=== PATIENT | male | born 1960 | race Caucasian/White ===

== ENCOUNTER 2017-04-05 13:17 | Inpatient (IN) | payer BC ==
[~2017-04-05 13:17] MED LIST: EPHEDrine SULFATE 50 MG/5 ML SYG; LIDOCAINE 100 MG SYRINGE
[2017-04-05] MEDS ORDERED: SUCCINYLCHOLINE CHLORIDE 100 MG/5 ML SYG IV (16:45)
[2017-04-05] MEDS ORDERED: PROPOFOL 20 ML (16:45)
[2017-04-05] MEDS ORDERED: MIDAZOLAM 1 MG/ML 2 ML INJ (16:45)
[2017-04-05] MEDS ORDERED: ROCURONIUM 50 MG INJ ×3 (16:45→17:25)
[2017-04-05] MEDS ORDERED: HEPARIN 1000 UNITS/ML 10 ML INJ (16:55)
[2017-04-05] MEDS ORDERED: SCOPOLAMINE 1.5 MG PATCH (17:00)
[2017-04-05] MEDS ORDERED: THROMBIN 5000 UNIT VIAL ×2 (17:16→19:49)
[2017-04-05] MEDS ORDERED: CEFAZOLIN 1 GM INJ ×2 (17:16→17:36)
[2017-04-05] MEDS ORDERED: GELATIN SIZE 100 SPONGE (17:16)
[2017-04-05] MEDS ORDERED: SODIUM CL BACTERIOSTATIC 30 ML INJ (17:17)
[2017-04-05] MEDS ORDERED: NALOXONE (0.4 MG/ML) INJ IV (17:30)
[2017-04-05] MEDS: DOCUSATE SODIUM 100 MG CAP PO ×2 (17:30→21:00)
[2017-04-05] MEDS ORDERED: PHENYLephrine (100 MCG/ML) 5ML SYG ×4 (17:39→19:55)
[2017-04-05] MEDS ORDERED: ONDANSETRON 4 MG INJ (17:46)
[2017-04-05] MEDS ORDERED: METOCLOPRAMIDE 10 MG INJ (17:46)
[2017-04-05] MEDS ORDERED: FAMOTIDINE 20 MG INJ (17:46)
[2017-04-05] MEDS ORDERED: DEXAMETHASONE 4 MG/ML 1 ML INJ (17:46)
[2017-04-05] MEDS ORDERED: LABETALOL HCL 20MG INJ (18:11)
[2017-04-05] MEDS: HEPARIN 10,000 UNITS/ML 1 ML INJ SC (18:27)
[2017-04-05] MEDS: CEFAZOLIN 1 GM INJ IVPB (18:28)
[2017-04-05] MEDS: THROMBIN 5000 UNIT VIAL TOP (18:39)
[2017-04-05] MEDS: HEMOSTATIC MATRIX SYG INJ (18:39)
[2017-04-05] MEDS: GELATIN SIZE 100 SPONGE (19:42)
[2017-04-05] MEDS ORDERED: SUGAMMADEX SODIUM 200 MG/2 ML VIAL IV (20:36)
[2017-04-05] MEDS ORDERED: FENTAnyl 50 MCG/ML VIAL (20:57)
[2017-04-05] MEDS ORDERED: HYDROmorphONE (0.2 MG/ML) 10ML SYG IV ×2 (21:19→21:30)
[2017-04-05] MEDS: HYDROmorphONE (0.2 MG/ML) 10ML SYG IV (21:30)
[2017-04-05] MEDS: HYDROmorphONE 0.5 MG/0.5 ML SYG IV (23:10)
[2017-04-06] MEDS: INSULIN ASPART [NOVOLOG] 3 ML PEN SC ×7 (01:48→20:09)
[2017-04-06] MEDS: ACCU-CHEK XX ×4 (02:00→13:30)
[2017-04-06] MEDS: HYDROmorphONE 0.5 MG/0.5 ML SYG IV ×4 (03:46→18:07)
[2017-04-06] MEDS: CEFAZOLIN 2 GM/50 ML (PMX) 50 ML IVPB ×4 (06:00→21:01)
[2017-04-06 06:07] LABS: HEMATOCRIT 35.8 % (42.0-52.0); HEMOGLOBIN 12.9 g/dl (14.0-18.0)
[2017-04-06 06:56] LABS: ANION GAP 17 (8-16); BLOOD UREA NITROGEN 18 mg/dl (7-20); CALCIUM 7.8 mg/dl (8.4-10.2); CARBON DIOXIDE 24 mmol/L (21-31); CHLORIDE 106 mmol/L (97-110); CREATININE 0.81 mg/dl (0.61-1.24); GLUCOSE 263 mg/dl (70-220); POTASSIUM 4.8 mmol/L (3.5-5.1); SODIUM 142 mmol/L (135-144)
[2017-04-06] MEDS ORDERED: INSULIN ASPART [NOVOLOG] 3 ML PEN SC (07:05)
[2017-04-06 07:49] LABS: HEMOGLOBIN A1C 9.5 % (0-5.9)
[2017-04-06] MEDS: HYDROCODONE/APAP (5/325) TAB PO ×2 (08:37→16:02)
[2017-04-06] MEDS: DOCUSATE SODIUM 100 MG CAP PO ×2 (08:37→20:59)
[2017-04-06] MEDS: SOD CHLORIDE 0.9% 250 ML IV (11:28)
[2017-04-06 11:52] LABS: MAGNESIUM 1.7 mg/dl (1.7-2.5)
[2017-04-06] MEDS ORDERED: DEXTROSE 50% 50 ML SYRINGE IV ×2 (12:00)
[2017-04-06] MEDS ORDERED: GLUCOSE GEL 15 GRAM TUBE BUCCAL (12:00)
[2017-04-06] MEDS ORDERED: GLUCOSE GEL 15 GRAM TUBE PO ×2 (12:00)
[2017-04-06] MEDS ORDERED: GLUCAGON 1 MG INJ IM (12:00)
[2017-04-06] MEDS: METOPROLOL 50 MG TAB PO ×2 (12:03→21:00)
[2017-04-06] MEDS ORDERED: INFLUENZA VIRUS VACCINE 0.5 ML (DISPENSING) IM* (19:00)
[2017-04-06] MEDS: INSULIN GLARGINE [LANtus] 3 ML PEN SC (20:10)
[2017-04-07] MEDS: HYDROCODONE/APAP (5/325) TAB PO ×3 (00:06→20:05)
[2017-04-07] MEDS: HYDROmorphONE 0.5 MG/0.5 ML SYG IV ×3 (01:27→14:39)
[2017-04-07] MEDS: ACCU-CHEK XX ×4 (01:36→20:03)
[2017-04-07] MEDS: CEFAZOLIN 2 GM/50 ML (PMX) 50 ML IVPB ×3 (05:20→21:41)
[2017-04-07 05:42] LABS: ADD MAN DIFF? NO
[2017-04-07 05:49] LABS: WHITE BLOOD COUNT 8.7 10^3/ul (4.8-10.8)
[2017-04-07 05:49] LABS: BASOPHILS % 0.3 % (0.0-2.0); EOSINOPHILS % 0.3 % (0.0-7.0); HEMATOCRIT 34.8 % (42.0-52.0); HEMOGLOBIN 12.2 g/dl (14.0-18.0); LYMPHOCYTES # 1.2 10^3/ul (0.8-2.9); LYMPHOCYTES % 14.1 % (15.0-51.0); MEAN CORPUSCULAR HEMOGLOBIN 33.2 pg (29.0-33.0); MEAN CORPUSCULAR HGB CONC 35.1 g/dl (32.0-37.0); MEAN CORPUSCULAR VOLUME 94.6 fl (82.0-101.0); MEAN PLATELET VOLUME 10.2 fl (7.4-10.4); MONOCYTE # 0.8 10^3/ul (0.3-0.9); NEUTROPHIL # 6.6 10^3/ul (1.6-7.5); NEUTROPHILS % 75.8 % (39.0-77.0); PLATELET COUNT 145 10^3/UL (140-415); RED BLOOD COUNT 3.68 10^6/ul (4.70-6.10); RED CELL DISTRIBUTION WIDTH 11.9 % (11.5-14.5)
[2017-04-07 06:38] LABS: CHOLESTEROL 128 mg/dl (100-200)
[2017-04-07 06:38] LABS: CHOL/HDL RATIO 4.7 RATIO; HDL CHOLESTEROL 27 mg/dl (28-71); LDL CHOLESTEROL,CALCULATED 69 mg/dl; TRIGLYCERIDES 159 mg/dl (0-149)
[2017-04-07 06:42] LABS: ANION GAP 10 (8-16); BLOOD UREA NITROGEN 18 mg/dl (7-20); CALCIUM 8.4 mg/dl (8.4-10.2); CARBON DIOXIDE 27 mmol/L (21-31); CHLORIDE 103 mmol/L (97-110); CREATININE 0.75 mg/dl (0.61-1.24); GLUCOSE 203 mg/dl (70-220); POTASSIUM 3.9 mmol/L (3.5-5.1); SODIUM 136 mmol/L (135-144)
[2017-04-07] MEDS: INSULIN ASPART [NOVOLOG] 3 ML PEN SC ×7 (08:13→21:12)
[2017-04-07] MEDS: DOCUSATE SODIUM 100 MG CAP PO ×2 (09:25→20:05)
[2017-04-07] MEDS: METOPROLOL 50 MG TAB PO ×2 (09:26→20:05)
[2017-04-07] MEDS ORDERED: INSULIN ASPART [NOVOLOG] 3 ML PEN SC (17:35)
[2017-04-07] MEDS: INSULIN GLARGINE [LANtus] 3 ML PEN SC (20:05)
[2017-04-08] MEDS: HYDROmorphONE 0.5 MG/0.5 ML SYG IV ×4 (00:07→19:59)
[2017-04-08] MEDS: ACCU-CHEK XX ×4 (02:00→19:35)
[2017-04-08] MEDS: CEFAZOLIN 2 GM/50 ML (PMX) 50 ML IVPB ×3 (06:06→22:09)
[2017-04-08 06:19] LABS: ADD MAN DIFF? NO
[2017-04-08 06:47] LABS: WHITE BLOOD COUNT 7.9 10^3/ul (4.8-10.8)
[2017-04-08 06:47] LABS: BASOPHILS % 0.3 % (0.0-2.0); EOSINOPHILS # 0.1 10^3/ul (0.0-0.5); EOSINOPHILS % 1.1 % (0.0-7.0); HEMOGLOBIN 12.1 g/dl (14.0-18.0); LYMPHOCYTES # 1.1 10^3/ul (0.8-2.9); LYMPHOCYTES % 14.5 % (15.0-51.0); MEAN CORPUSCULAR HEMOGLOBIN 33.8 pg (29.0-33.0); MEAN CORPUSCULAR HGB CONC 36.7 g/dl (32.0-37.0); MEAN CORPUSCULAR VOLUME 92.2 fl (82.0-101.0); MEAN PLATELET VOLUME 10.4 fl (7.4-10.4); MONOCYTE # 0.7 10^3/ul (0.3-0.9); MONOCYTES % 8.3 % (0.0-11.0); NEUTROPHIL # 5.9 10^3/ul (1.6-7.5); NEUTROPHILS % 75.4 % (39.0-77.0); PLATELET COUNT 155 10^3/UL (140-415); RED BLOOD COUNT 3.58 10^6/ul (4.70-6.10); RED CELL DISTRIBUTION WIDTH 11.9 % (11.5-14.5)
[2017-04-08 07:07] LABS: ANION GAP 15 (8-16); BLOOD UREA NITROGEN 15 mg/dl (7-20); CALCIUM 8.1 mg/dl (8.4-10.2); CARBON DIOXIDE 26 mmol/L (21-31); CHLORIDE 102 mmol/L (97-110); CREATININE 0.69 mg/dl (0.61-1.24); GLUCOSE 172 mg/dl (70-220); SODIUM 139 mmol/L (135-144)
[2017-04-08] MEDS: INSULIN ASPART [NOVOLOG] 3 ML PEN SC ×7 (08:35→20:56)
[2017-04-08] MEDS: METOPROLOL 50 MG TAB PO ×2 (09:09→19:41)
[2017-04-08] MEDS: DOCUSATE SODIUM 100 MG CAP PO ×2 (09:09→20:56)
[2017-04-08] MEDS: HYDROCODONE/APAP (5/325) TAB PO ×2 (09:09→20:36)
[2017-04-08] MEDS ORDERED: MIDAZOLAM 1 MG/ML 2 ML INJ (15:34)
[2017-04-08] MEDS ORDERED: METOCLOPRAMIDE 10 MG INJ (15:34)
[2017-04-08] MEDS ORDERED: PROPOFOL 20 ML (15:34)
[2017-04-08] MEDS ORDERED: HYDROmorphONE 2 MG/ML SYG (15:53)
[2017-04-08] MEDS ORDERED: CEFAZOLIN 1 GM INJ (16:13)
[2017-04-08] MEDS ORDERED: SCOPOLAMINE 1.5 MG PATCH (16:14)
[2017-04-08] MEDS ORDERED: DEXAMETHASONE 4 MG/ML 1 ML INJ (16:16)
[2017-04-08] MEDS: GELATIN SIZE 100 SPONGE (16:57)
[2017-04-08] MEDS: POLYMYXIN/BACITRACIN 1L IRRIG (16:57)
[2017-04-08] MEDS: THROMBIN 5000 UNIT VIAL (16:57)
[2017-04-08] MEDS ORDERED: ROCURONIUM 50 MG INJ (18:36)
[2017-04-08] MEDS: ROPIVACAINE 0.5 % 30 ML VIAL ×2 (18:59)
[2017-04-08] MEDS ORDERED: NEOSTIGMINE 3 MG/3 ML SYRINGE (19:03)
[2017-04-08] MEDS ORDERED: GLYCOPYRROLATE 0.4 MG INJ (19:03)
[2017-04-08] MEDS ORDERED: hydrALAzine 20 MG INJ (19:54)
[2017-04-08] MEDS: hydrALAzine 20 MG INJ IV (20:30)
[2017-04-08] MEDS: INSULIN GLARGINE [LANtus] 3 ML PEN SC (20:55)
[2017-04-09] MEDS: ACCU-CHEK XX ×4 (02:14→20:23)
[2017-04-09] MEDS: HYDROmorphONE 0.5 MG/0.5 ML SYG IV ×3 (05:20→09:28)
[2017-04-09] MEDS: CEFAZOLIN 2 GM/50 ML (PMX) 50 ML IVPB ×3 (05:47→22:13)
[2017-04-09 05:51] LABS: ADD MAN DIFF? NO
[2017-04-09 05:58] LABS: BASOPHILS % 0.1 % (0.0-2.0); HEMATOCRIT 29.7 % (42.0-52.0); HEMOGLOBIN 10.8 g/dl (14.0-18.0); LYMPHOCYTES # 0.8 10^3/ul (0.8-2.9); LYMPHOCYTES % 8.8 % (15.0-51.0); MEAN CORPUSCULAR HEMOGLOBIN 33.4 pg (29.0-33.0); MEAN CORPUSCULAR HGB CONC 36.4 g/dl (32.0-37.0); MONOCYTE # 0.6 10^3/ul (0.3-0.9); MONOCYTES % 6.4 % (0.0-11.0); NEUTROPHIL # 7.6 10^3/ul (1.6-7.5); NEUTROPHILS % 84.1 % (39.0-77.0); PLATELET COUNT 214 10^3/UL (140-415); RED BLOOD COUNT 3.23 10^6/ul (4.70-6.10); RED CELL DISTRIBUTION WIDTH 11.7 % (11.5-14.5)
[2017-04-09 06:37] LABS: ANION GAP 15 (8-16); BLOOD UREA NITROGEN 18 mg/dl (7-20); CALCIUM 8.3 mg/dl (8.4-10.2); CARBON DIOXIDE 21 mmol/L (21-31); CHLORIDE 106 mmol/L (97-110); CREATININE 0.58 mg/dl (0.61-1.24); GLUCOSE 217 mg/dl (70-220); SODIUM 138 mmol/L (135-144)
[2017-04-09] MEDS: INSULIN ASPART [NOVOLOG] 3 ML PEN SC ×8 (08:02→20:33)
[2017-04-09] MEDS: DOCUSATE SODIUM 100 MG CAP PO ×2 (08:24→20:24)
[2017-04-09] MEDS: METOPROLOL 50 MG TAB PO ×2 (08:25→20:24)
[2017-04-09] MEDS: HYDROCODONE/APAP (5/325) TAB PO ×2 (09:28→20:39)
[2017-04-09] MEDS: HYDROmorphONE 2 MG/ML SYG IV ×4 (11:21→22:13)
[2017-04-09] MEDS: INSULIN GLARGINE [LANtus] 3 ML PEN SC (20:33)
[2017-04-10] MEDS: ACCU-CHEK XX ×4 (01:54→19:55)
[2017-04-10] MEDS: HYDROmorphONE 2 MG/ML SYG IV ×5 (03:10→20:40)
[2017-04-10 05:35] LABS: ADD MAN DIFF? NO
[2017-04-10 05:50] LABS: BASOPHILS % 0.3 % (0.0-2.0); EOSINOPHILS # 0.2 10^3/ul (0.0-0.5); EOSINOPHILS % 2.5 % (0.0-7.0); HEMATOCRIT 26.9 % (42.0-52.0); HEMOGLOBIN 9.6 g/dl (14.0-18.0); LYMPHOCYTES # 1.4 10^3/ul (0.8-2.9); LYMPHOCYTES % 21.5 % (15.0-51.0); MEAN CORPUSCULAR HEMOGLOBIN 33.3 pg (29.0-33.0); MEAN CORPUSCULAR HGB CONC 35.7 g/dl (32.0-37.0); MEAN CORPUSCULAR VOLUME 93.4 fl (82.0-101.0); MEAN PLATELET VOLUME 9.6 fl (7.4-10.4); MONOCYTE # 0.6 10^3/ul (0.3-0.9); MONOCYTES % 9.3 % (0.0-11.0); NEUTROPHIL # 4.4 10^3/ul (1.6-7.5); NEUTROPHILS % 65.5 % (39.0-77.0); PLATELET COUNT 205 10^3/UL (140-415); RED BLOOD COUNT 2.88 10^6/ul (4.70-6.10)
[2017-04-10 05:50] LABS: WHITE BLOOD COUNT 6.7 10^3/ul (4.8-10.8)
[2017-04-10] MEDS: HYDROCODONE/APAP (5/325) TAB PO (05:55)
[2017-04-10 06:47] LABS: ANION GAP 12 (8-16); BLOOD UREA NITROGEN 22 mg/dl (7-20); CALCIUM 8.2 mg/dl (8.4-10.2); CARBON DIOXIDE 28 mmol/L (21-31); CHLORIDE 101 mmol/L (97-110); CREATININE 0.75 mg/dl (0.61-1.24); GLUCOSE 220 mg/dl (70-220); POTASSIUM 4.3 mmol/L (3.5-5.1); SODIUM 137 mmol/L (135-144)
[2017-04-10] MEDS: DOCUSATE SODIUM 100 MG CAP PO ×2 (08:33→20:17)
[2017-04-10] MEDS: METOPROLOL 50 MG TAB PO ×2 (08:33→20:18)
[2017-04-10] MEDS: INSULIN ASPART [NOVOLOG] 3 ML PEN SC ×7 (09:07→20:23)
[2017-04-10] MEDS: BISACODYL (EC) 5 MG TAB PO (16:59)
[2017-04-10] MEDS: INSULIN GLARGINE [LANtus] 3 ML PEN SC (20:22)
[2017-04-11] MEDS: ACCU-CHEK XX ×4 (02:00→20:05)
[2017-04-11] MEDS: HYDROmorphONE 2 MG/ML SYG IV ×3 (02:22→12:37)
[2017-04-11] MEDS: HYDROCODONE/APAP (5/325) TAB PO ×4 (04:00→20:38)
[2017-04-11] MEDS: DOCUSATE SODIUM 100 MG CAP PO ×2 (09:31→20:25)
[2017-04-11] MEDS: METOPROLOL 50 MG TAB PO ×2 (09:31→20:25)
[2017-04-11] MEDS: INSULIN ASPART [NOVOLOG] 3 ML PEN SC ×7 (09:41→20:29)
[2017-04-11] MEDS ORDERED: ARTIFICIAL TEARS 15 ML OPH BOTH EYES (13:00)
[2017-04-11] MEDS: ONDANSETRON 4 MG INJ IV (15:37)
[2017-04-11] MEDS: BISACODYL (EC) 5 MG TAB PO (20:25)
[2017-04-11] MEDS: INSULIN GLARGINE [LANtus] 3 ML PEN SC (20:28)
[2017-04-12] MEDS: ACCU-CHEK XX ×2 (01:40→10:48)
[2017-04-12] MEDS: HYDROCODONE/APAP (5/325) TAB PO ×4 (04:44→20:04)
[2017-04-12] MEDS: BISACODYL (EC) 5 MG TAB PO (04:44)
[2017-04-12] MEDS: DOCUSATE SODIUM 100 MG CAP PO ×2 (08:51→20:04)
[2017-04-12] MEDS: INSULIN ASPART [NOVOLOG] 3 ML PEN SC ×7 (08:52→20:12)
[2017-04-12] MEDS: METOPROLOL 50 MG TAB PO ×2 (08:54→20:05)
[2017-04-12] MEDS: LACTULOSE 30ML CUP PO (11:06)
[2017-04-12 14:26] LABS: ADD MAN DIFF? NO
[2017-04-12 14:30] LABS: WHITE BLOOD COUNT 6.9 10^3/ul (4.8-10.8)
[2017-04-12 14:30] LABS: BASOPHILS % 0.4 % (0.0-2.0); EOSINOPHILS # 0.1 10^3/ul (0.0-0.5); HEMATOCRIT 28.2 % (42.0-52.0); HEMOGLOBIN 10.2 g/dl (14.0-18.0); LYMPHOCYTES # 0.7 10^3/ul (0.8-2.9); LYMPHOCYTES % 10.2 % (15.0-51.0); MEAN CORPUSCULAR HEMOGLOBIN 33.6 pg (29.0-33.0); MEAN CORPUSCULAR HGB CONC 36.2 g/dl (32.0-37.0); MEAN CORPUSCULAR VOLUME 92.8 fl (82.0-101.0); MEAN PLATELET VOLUME 9.1 fl (7.4-10.4); MONOCYTE # 0.4 10^3/ul (0.3-0.9); MONOCYTES % 6.4 % (0.0-11.0); NEUTROPHIL # 5.6 10^3/ul (1.6-7.5); NEUTROPHILS % 80.8 % (39.0-77.0); PLATELET COUNT 270 10^3/UL (140-415); RED BLOOD COUNT 3.04 10^6/ul (4.70-6.10); RED CELL DISTRIBUTION WIDTH 12.8 % (11.5-14.5)
[2017-04-12 15:03] LABS: ANION GAP 11 (8-16); BLOOD UREA NITROGEN 15 mg/dl (7-20); CARBON DIOXIDE 29 mmol/L (21-31); CHLORIDE 102 mmol/L (97-110); CREATININE 0.76 mg/dl (0.61-1.24); GLUCOSE 230 mg/dl (70-220); POTASSIUM 3.5 mmol/L (3.5-5.1); SODIUM 138 mmol/L (135-144)
[2017-04-12] MEDS ORDERED: MINERAL OIL 133 ML ENEMA PR (19:30)
[2017-04-12] MEDS: INSULIN GLARGINE [LANtus] 3 ML PEN SC (20:11)
[2017-04-13] MEDS: ACCU-CHEK XX (01:57)
[2017-04-13 05:13] LABS: ADD MAN DIFF? NO
[2017-04-13 05:21] LABS: WHITE BLOOD COUNT 6.6 10^3/ul (4.8-10.8)
[2017-04-13 05:21] LABS: BASOPHILS % 0.5 % (0.0-2.0); EOSINOPHILS # 0.2 10^3/ul (0.0-0.5); EOSINOPHILS % 2.7 % (0.0-7.0); HEMATOCRIT 28.5 % (42.0-52.0); HEMOGLOBIN 10.1 g/dl (14.0-18.0); LYMPHOCYTES # 1.2 10^3/ul (0.8-2.9); LYMPHOCYTES % 18.4 % (15.0-51.0); MEAN CORPUSCULAR HEMOGLOBIN 32.8 pg (29.0-33.0); MEAN CORPUSCULAR HGB CONC 35.4 g/dl (32.0-37.0); MEAN CORPUSCULAR VOLUME 92.5 fl (82.0-101.0); MONOCYTE # 0.5 10^3/ul (0.3-0.9); MONOCYTES % 8.2 % (0.0-11.0); NEUTROPHIL # 4.5 10^3/ul (1.6-7.5); NEUTROPHILS % 69.3 % (39.0-77.0); PLATELET COUNT 261 10^3/UL (140-415); RED BLOOD COUNT 3.08 10^6/ul (4.70-6.10); RED CELL DISTRIBUTION WIDTH 12.5 % (11.5-14.5)
[2017-04-13] MEDS: HYDROCODONE/APAP (5/325) TAB PO ×4 (05:41→21:59)
[2017-04-13 06:01] LABS: ANION GAP 11 (8-16); BLOOD UREA NITROGEN 11 mg/dl (7-20); CALCIUM 8.5 mg/dl (8.4-10.2); CARBON DIOXIDE 27 mmol/L (21-31); CHLORIDE 106 mmol/L (97-110); CREATININE 0.67 mg/dl (0.61-1.24); GLUCOSE 182 mg/dl (70-220); POTASSIUM 3.4 mmol/L (3.5-5.1); SODIUM 141 mmol/L (135-144)
[2017-04-13] MEDS: DOCUSATE SODIUM 100 MG CAP PO ×2 (08:42→20:30)
[2017-04-13] MEDS: METOPROLOL 50 MG TAB PO ×2 (08:42→20:30)
[2017-04-13] MEDS: INSULIN ASPART [NOVOLOG] 3 ML PEN SC ×7 (09:04→20:30)
[2017-04-13] MEDS: HYDROmorphONE 2 MG TAB PO (11:48)
[2017-04-13] MEDS: POTASSIUM CHLORIDE (SR) 20 MEQ TAB PO (12:54)
[2017-04-13] MEDS: INSULIN GLARGINE [LANtus] 3 ML PEN SC (20:44)
== END 2017-04-13 22:20 | DRG 455 ==
LOC: REC 13:17 → MS1 04-09 14:29 → ICU 22:41
PROVIDERS: Neurological Surgery
PROC: 0SG10A0 Fusion of 2 or more Lumbar Vertebral Joints with Interbody Fusion Device, Anterior Approach, Anterior Column, Open Approach (ICD-10-PCS; principal; 2017-04-05 15:00)
PROC: 0SG30A0 Fusion of Lumbosacral Joint with Interbody Fusion Device, Anterior Approach, Anterior Column, Open Approach (ICD-10-PCS; 2017-04-05 15:00)
PROC: 0SB20ZZ Excision of Lumbar Vertebral Disc, Open Approach (ICD-10-PCS; 2017-04-05 15:00)
PROC: 0SB40ZZ Excision of Lumbosacral Disc, Open Approach (ICD-10-PCS; 2017-04-05 15:00)
PROC: 0SG10Z1 (ICD-10-PCS; 2017-04-05 16:35)
PROC: 0SG30Z1 (ICD-10-PCS; 2017-04-05 16:35)
DX: M51.16 Intervertebral disc disorders with radiculopathy, lumbar region (principal); I10 Essential (primary) hypertension; M51.17 Intervertebral disc disorders with radiculopathy, lumbosacral region; Z87.891 Personal history of nicotine dependence; K59.00 Constipation, unspecified; E11.9 Type 2 diabetes mellitus without complications
CPT/HCPCS: 72100; 72114; 72131; 80048; 80061; 82962; 83036; 83735; 85014; 85018; 85025; 86850; 86900; 86901; 86920; 87081; 87086; 88304; 88311; 90686; 97110; 97116; 97163; 97164; 97167; 97530; 97535

== ENCOUNTER 2017-04-13 22:33 | Inpatient (IN) | payer BC ==
[2017-04-13] MEDS ORDERED: GLUCAGON 1 MG INJ IM (23:45)
[2017-04-13] MEDS ORDERED: GLUCOSE GEL 15 GRAM TUBE PO ×2 (23:45)
[2017-04-13] MEDS ORDERED: GLUCOSE GEL 15 GRAM TUBE BUCCAL (23:45)
[2017-04-13] MEDS ORDERED: MINERAL OIL 133 ML ENEMA PR (23:45)
[2017-04-13] MEDS ORDERED: hydrALAzine 20 MG INJ IV (23:45)
[2017-04-13] MEDS ORDERED: NALOXONE (0.4 MG/ML) INJ IV (23:45)
[2017-04-13] MEDS ORDERED: DEXTROSE 50% 50 ML SYRINGE IV ×2 (23:45)
[2017-04-13] MEDS ORDERED: ONDANSETRON 4 MG INJ IV (23:45)
[2017-04-13] MEDS ORDERED: HYDROCODONE/APAP (5/325) TAB PO (23:45)
[2017-04-14] MEDS ORDERED: PENDING SANTYL ORDER FOR WOUND CARE XX
[2017-04-14] MEDS ORDERED: ARTIFICIAL TEARS 15 ML OPH BOTH EYES (00:30)
[2017-04-14] MEDS ORDERED: BISACODYL (EC) 5 MG TAB PO (00:30)
[2017-04-14] MEDS: ACCUCHECK AT 2AM (Patients on SS coverage) XX (02:00)
[2017-04-14 04:47] LABS: ADD UMIC NO; UR AMORPHOUS CRYSTAL FEW /HPF (NONE SEEN); UR ASCORBIC ACID NEGATIVE (NEGATIVE); UR BILIRUBIN (Dip) NEGATIVE (NEGATIVE); UR BLOOD (Dip) NEGATIVE (NEGATIVE); UR CLARITY SLIGHTLY CLOUDY (CLEAR); UR COLOR YELLOW (YELLOW); UR GLUCOSE (Dip) NEGATIVE (NEGATIVE); UR KETONES (Dip) NEGATIVE (NEGATIVE); UR LEUKOCYTE ESTERASE (Dip) NEGATIVE Leu/ul (NEGATIVE); UR NITRITE (Dip) NEGATIVE (NEGATIVE); UR RBC 1 /HPF (0-5); UR SPECIFIC GRAVITY (Dip) 1.006 (1.003-1.030); UR TOTAL PROTEIN (Dip) NEGATIVE (NEGATIVE); UR UROBILINOGEN (Dip) NEGATIVE (NEGATIVE); UR WBC 1 /HPF (0-5)
[2017-04-14] MEDS: Insulin NOVOLOG SS MILD Algorithm (SS with meals and bedtime) SC ×4 (07:05→20:42)
[2017-04-14 07:37] LABS: ADD MAN DIFF? NO
[2017-04-14 07:42] LABS: WHITE BLOOD COUNT 5.3 10^3/ul (4.8-10.8)
[2017-04-14 07:42] LABS: BASOPHILS % 0.6 % (0.0-2.0); EOSINOPHILS # 0.2 10^3/ul (0.0-0.5); EOSINOPHILS % 4.4 % (0.0-7.0); HEMATOCRIT 29.5 % (42.0-52.0); HEMOGLOBIN 10.6 g/dl (14.0-18.0); LYMPHOCYTES # 1.2 10^3/ul (0.8-2.9); LYMPHOCYTES % 23.3 % (15.0-51.0); MEAN CORPUSCULAR HEMOGLOBIN 33.5 pg (29.0-33.0); MEAN CORPUSCULAR HGB CONC 35.9 g/dl (32.0-37.0); MEAN CORPUSCULAR VOLUME 93.4 fl (82.0-101.0); MEAN PLATELET VOLUME 8.9 fl (7.4-10.4); MONOCYTE # 0.5 10^3/ul (0.3-0.9); MONOCYTES % 8.5 % (0.0-11.0); NEUTROPHIL # 3.3 10^3/ul (1.6-7.5); NEUTROPHILS % 62.3 % (39.0-77.0); PLATELET COUNT 284 10^3/UL (140-415); RED BLOOD COUNT 3.16 10^6/ul (4.70-6.10); RED CELL DISTRIBUTION WIDTH 12.9 % (11.5-14.5)
[2017-04-14 08:01] LABS: ALANINE AMINOTRANSFERASE 56 IU/L (13-69); ALBUMIN 3.3 g/dl (3.3-4.9); ALKALINE PHOSPHATASE 57 IU/L (42-121); ANION GAP 12 (8-16); ASPARTATE AMINO TRANSFERASE 43 IU/L (15-46); BILIRUBIN,INDIRECT 0.6 mg/dl (0-1.1); BILIRUBIN,TOTAL 0.6 mg/dl (0.2-1.3); BLOOD UREA NITROGEN 10 mg/dl (7-20); CALCIUM 8.9 mg/dl (8.4-10.2); CARBON DIOXIDE 28 mmol/L (21-31); CHLORIDE 105 mmol/L (97-110); CREATININE 0.73 mg/dl (0.61-1.24); GLUCOSE 136 mg/dl (70-220); POTASSIUM 3.5 mmol/L (3.5-5.1); SODIUM 141 mmol/L (135-144); TOTAL PROTEIN 6.3 g/dl (6.1-8.1)
[2017-04-14] MEDS: HYDROCODONE/APAP (5/325) TAB PO ×2 (08:13→20:54)
[2017-04-14] MEDS: DOCUSATE SODIUM 100 MG CAP PO ×2 (08:14→20:42)
[2017-04-14] MEDS: METOPROLOL 50 MG TAB PO ×2 (08:14→20:42)
[2017-04-14] MEDS: INSULIN ASPART [NOVOLOG] 3 ML PEN SC ×3 (08:16→17:38)
[2017-04-14] MEDS: HYDROmorphONE 2 MG TAB PO (09:59)
[2017-04-14] MEDS: LACTULOSE 30ML CUP PO (17:38)
[2017-04-14] MEDS: INSULIN GLARGINE [LANtus] 3 ML PEN SC (20:59)
[2017-04-15] MEDS: ACCUCHECK AT 2AM (Patients on SS coverage) XX (02:00)
[2017-04-15] MEDS: HYDROCODONE/APAP (5/325) TAB PO ×5 (04:05→21:43)
[2017-04-15] MEDS: Insulin NOVOLOG SS MILD Algorithm (SS with meals and bedtime) SC ×4 (07:05→21:00)
[2017-04-15] MEDS: INSULIN ASPART [NOVOLOG] 3 ML PEN SC ×3 (08:07→18:04)
[2017-04-15] MEDS: DOCUSATE SODIUM 100 MG CAP PO ×2 (08:50→21:42)
[2017-04-15] MEDS: METOPROLOL 50 MG TAB PO ×2 (09:00→21:42)
[2017-04-15] MEDS: INSULIN GLARGINE [LANtus] 3 ML PEN SC (21:49)
[2017-04-16] MEDS: ACCUCHECK AT 2AM (Patients on SS coverage) XX (01:51)
[2017-04-16] MEDS: HYDROCODONE/APAP (5/325) TAB PO ×3 (04:56→10:11)
[2017-04-16] MEDS: Insulin NOVOLOG SS MILD Algorithm (SS with meals and bedtime) SC ×4 (08:06→21:00)
[2017-04-16] MEDS: INSULIN ASPART [NOVOLOG] 3 ML PEN SC ×3 (08:08→17:44)
[2017-04-16] MEDS: METOPROLOL 50 MG TAB PO ×2 (09:32→21:34)
[2017-04-16] MEDS: DOCUSATE SODIUM 100 MG CAP PO ×2 (09:34→21:33)
[2017-04-16] MEDS: INFLUENZA VIRUS VACCINE 0.5 ML (DISPENSING) IM* (10:07)
[2017-04-16] MEDS: HYDROCODONE/APAP (10/325) TAB PO ×2 (14:31→19:49)
[2017-04-16] MEDS: INSULIN GLARGINE [LANtus] 3 ML PEN SC (21:39)
[2017-04-17] MEDS: ACCUCHECK AT 2AM (Patients on SS coverage) XX (02:00)
[2017-04-17] MEDS: HYDROCODONE/APAP (10/325) TAB PO ×4 (03:23→17:17)
[2017-04-17] MEDS: Insulin NOVOLOG SS MILD Algorithm (SS with meals and bedtime) SC ×4 (07:49→21:24)
[2017-04-17] MEDS: INSULIN ASPART [NOVOLOG] 3 ML PEN SC ×3 (07:50→17:26)
[2017-04-17] MEDS: METOPROLOL 50 MG TAB PO ×2 (09:26→21:11)
[2017-04-17] MEDS: DOCUSATE SODIUM 100 MG CAP PO ×2 (09:26→21:11)
[2017-04-17] MEDS: BACLOFEN 10 MG TAB PO (21:11)
[2017-04-17] MEDS: INSULIN GLARGINE [LANtus] 3 ML PEN SC (21:23)
[2017-04-18] MEDS: ACCUCHECK AT 2AM (Patients on SS coverage) XX (02:32)
[2017-04-18] MEDS: HYDROCODONE/APAP (10/325) TAB PO ×4 (02:40→20:50)
[2017-04-18] MEDS: Insulin NOVOLOG SS MILD Algorithm (SS with meals and bedtime) SC ×4 (08:30→20:49)
[2017-04-18] MEDS: INSULIN ASPART [NOVOLOG] 3 ML PEN SC ×3 (08:31→17:41)
[2017-04-18] MEDS: DOCUSATE SODIUM 100 MG CAP PO ×2 (09:13→20:50)
[2017-04-18] MEDS: METOPROLOL 50 MG TAB PO ×2 (09:13→20:54)
[2017-04-18] MEDS: INSULIN GLARGINE [LANtus] 3 ML PEN SC (20:48)
[2017-04-18] MEDS: BACLOFEN 10 MG TAB PO (20:51)
[2017-04-19] MEDS: HYDROCODONE/APAP (10/325) TAB PO ×6 (00:57→21:45)
[2017-04-19] MEDS: ACCUCHECK AT 2AM (Patients on SS coverage) XX (02:00)
[2017-04-19] MEDS: Insulin NOVOLOG SS MILD Algorithm (SS with meals and bedtime) SC ×4 (07:55→21:36)
[2017-04-19] MEDS: INSULIN ASPART [NOVOLOG] 3 ML PEN SC ×3 (07:56→17:36)
[2017-04-19] MEDS: DOCUSATE SODIUM 100 MG CAP PO ×2 (08:42→21:32)
[2017-04-19] MEDS: METOPROLOL 50 MG TAB PO ×2 (08:43→21:34)
[2017-04-19] MEDS: BACLOFEN 10 MG TAB PO (21:32)
[2017-04-19] MEDS: INSULIN GLARGINE [LANtus] 3 ML PEN SC (21:37)
[2017-04-20] MEDS: HYDROCODONE/APAP (10/325) TAB PO ×2 (02:25→07:49)
[2017-04-20] MEDS: ACCUCHECK AT 2AM (Patients on SS coverage) XX (02:29)
[2017-04-20] MEDS: Insulin NOVOLOG SS MILD Algorithm (SS with meals and bedtime) SC (07:05)
[2017-04-20] MEDS: INSULIN ASPART [NOVOLOG] 3 ML PEN SC (08:22)
[2017-04-20] MEDS: DOCUSATE SODIUM 100 MG CAP PO (08:39)
[2017-04-20] MEDS: METOPROLOL 50 MG TAB PO (08:40)
== END 2017-04-20 11:00 | disposition home health service (06) | DRG 561 ==
LOC: VRC 22:33
PROC: F08Z0ZZ Bathing/Showering Techniques Treatment (ICD-10-PCS; principal; 2017-04-13)
PROC: F08Z1ZZ Dressing Techniques Treatment (ICD-10-PCS; 2017-04-13)
PROC: F08Z2ZZ Grooming/Personal Hygiene Treatment (ICD-10-PCS; 2017-04-13)
PROC: F07Z5ZZ Bed Mobility Treatment (ICD-10-PCS; 2017-04-13)
PROC: F07Z8ZZ Transfer Training Treatment (ICD-10-PCS; 2017-04-13)
PROC: F07Z9ZZ Gait Training/Functional Ambulation Treatment (ICD-10-PCS; 2017-04-13)
DX: Z47.89 Encounter for other orthopedic aftercare (principal); I10 Essential (primary) hypertension; E11.9 Type 2 diabetes mellitus without complications; R52 Pain, unspecified; K59.00 Constipation, unspecified; Z74.09 Other reduced mobility; Z98.1 Arthrodesis status; Z79.4 Long term (current) use of insulin
CPT/HCPCS: 80053; 81001; 81003; 82962; 85025; 87081; 87086; 90686; 97110; 97112; 97116; 97150; 97163; 97167; 97530; 97535

== ENCOUNTER 2017-05-03 14:13 | Emergency (ER) | payer BC | END 2017-05-03 19:35 | disposition home or self-care (01) | LOC: FTE 14:13 | DX: S29.9XXA Unspecified injury of thorax, initial encounter (principal); X58.XXXA Exposure to other specified factors, initial encounter; Y92.9 Unspecified place or not applicable | CPT/HCPCS: 72128; 72131; 99285-25 ==